=== PATIENT | female | born 1990 | race African-American/Black ===

== ENCOUNTER 2017-03-13 14:28 | Emergency (ER) | payer MEDICAID, OTHER ==
--- NOTE | 2017-03-13 16:14 | ER Document Report ---
ED Medical Screen (RME) - General Chief Complaint: Abdominal Pain Stated Complaint: BACK AND SIDE PAIN Time Seen by Provider: 03/13/17 16:12 Notes: Patient states she is currently and her last menstrual cycle was January 26. She states for several days she has had left lower quadrant pain that goes to her back. It is making her lightheaded and dizzy. No vaginal bleeding. TRAVEL OUTSIDE OF THE [place] IN LAST 30 DAYS: No - Related Data Allergies/Adverse Reactions: No Known Allergies Allergy (Verified 03/13/17 14:54) Past Medical History - Past Medical History Cardiac Medical History: Denies: Hx Coronary Artery Disease, Hx Heart Attack, Hx Hypertension Pulmonary Medical History: Reports: Hx Bronchitis - As a child, Hx Pneumonia Denies: Hx Asthma, Hx COPD Neurological Medical History: Denies: Hx Cerebrovascular Accident, Hx Seizures Renal/ Medical History: Denies: Hx Peritoneal Dialysis Musculoskeltal Medical History: Denies Hx Arthritis Past Surgical History: Reports: Hx Dilation and Curettage, Other - Pilonidal abscess - Immunizations Immunizations up to date: Yes Hx Diphtheria, Pertussis, Tetanus Vaccination: Yes - UNKNOWN Physical Exam - Vital signs Vitals: Temp Pulse Resp BP Pulse Ox 98.7 F 89 14 123/71 100 03/13/17 14:54 03/13/17 14:54 03/13/17 14:54 03/13/17 14:54 03/13/17 14:54 Course - Vital Signs Vital signs: Temp Pulse Resp BP Pulse Ox 98.7 F 89 14 123/71 100 03/13/17 14:54 03/13/17 14:54 03/13/17 14:54 03/13/17 14:54 03/13/17 14:54
[2017-03-13 17:00] LABS: ABSOLUTE EOSINOPHILS # (AUTO) 0.1 10^3/uL (0.0-0.6); ABSOLUTE LYMPHOCYTES (AUTO) 2.7 10^3/uL (0.5-4.7); ABSOLUTE MONOCYTES (AUTO) 0.6 10^3/uL (0.1-1.4); ABSOLUTE NEUT (AUTO) 3.8 10^3/uL (1.7-8.2); BASOPHILS % (AUTO) 0.3 % (0-2); EOSINOPHILS % (AUTO) 1.7 % (0-6); HEMATOCRIT 38.9 % (36.0-47.0); HEMOGLOBIN 13.5 g/dL (12.0-15.5); HGB HCT DIFFERENCE 1.6; LYMPHOCYTES % (AUTO) 37.3 % (13-45); MEAN CORPUSCULAR HEMOGLOBIN 31.6 pg (27.0-33.4); MEAN CORPUSCULAR HGB CONC 34.6 g/dL (32.0-36.0); MEAN CORPUSCULAR VOLUME 91 fl (80-97); RED BLOOD COUNT 4.26 10^6/uL (3.72-5.28); RED CELL DISTRIBUTION WIDTH 12.9 % (11.5-14.0); SEGMENTED NEUTROPHILS % (AUTO) 52.7 % (42-78); WHITE BLOOD COUNT 7.1 10^3/uL (4.0-10.5)
[2017-03-13 17:05] LABS: APPEARANCE,URINE SLIGHTLY-CLOUDY; BILIRUBIN,URINE NEGATIVE (NEGATIVE); GLUCOSE, URINE NEGATIVE (NEGATIVE); KETONES,URINE NEGATIVE (NEGATIVE); LEUKOCYTE ESTERASE,URINE SMALL (NEGATIVE); NITRITE,URINE NEGATIVE (NEGATIVE); PROTEIN,URINE NEGATIVE (NEGATIVE); URINE SPECIFIC GRAVITY 1.017; UROBILINOGEN,URINE NEGATIVE mg/dL (<2.0)
[2017-03-13 17:15] LABS: ALANINE AMINOTRANSFERASE 22 U/L (9-52); ALBUMIN 4.3 g/dL (3.5-5.0); ALKALINE PHOSPHATASE 39 U/L (38-126); ANION GAP 12 (5-19); ASPARTATE AMINO TRANSFERASE 18 U/L (14-36); BILIRUBIN,DIRECT 0.3 mg/dL (0.0-0.4); BILIRUBIN,TOTAL 0.4 mg/dL (0.2-1.3); BLOOD UREA NITROGEN 7 mg/dL (7-20); CALCIUM 9.5 mg/dL (8.4-10.2); CARBON DIOXIDE 24 mmol/L (22-30); CHLORIDE 103 mmol/L (98-107); CREATININE RESULT 0.75 mg/dL (0.52-1.25); GLUCOSE 74 mg/dL (75-110); POTASSIUM 3.8 mmol/L (3.6-5.0); SODIUM 138.7 mmol/L (137-145); TOTAL PROTEIN 6.8 g/dL (6.3-8.2)
--- NOTE | 2017-03-13 18:32 | ER Document Report ---
ED GI/ - General Mode of Arrival: Ambulatory Information source: Patient TRAVEL OUTSIDE OF THE [place] IN LAST 30 DAYS: No - HPI Patient complains to provider of: Abdominal pain, , Vomiting. No: Dysuria Onset: Other - Refer to HPI Notes Similar symptoms previously: No Recently seen / treated by doctor: No <KRYSTIAN ZAPATA - Last Filed: 03/13/17 20:38> <DIONI SHUKLA - Last Filed: 03/13/17 21:24> - General Chief Complaint: Abdominal Pain Stated Complaint: BACK AND SIDE PAIN Time Seen by Provider: 03/13/17 16:12 Notes: Patient is a 26 year old female presenting to the emergency department for left lower quadrant pain for the last 5 days. Patient states that she is A1. Patient believes she is 6 weeks but has not had an ultrasound yet and has not been seen by an OB. Patient states her pain shoots down and around into her back. Patient describes it as achy and sharp. Patient also has been lightheaded and dizzy and complains of some nausea and vomiting. Patient denies any vaginal discharge, vaginal bleeding, burning with urination, or other dysuria symptoms. Patient's last menstrual period was 01/26/2017. Patient has no known drug allergies. (KRYSTIAN ZAPATA) - Related Data Allergies/Adverse Reactions: No Known Allergies Allergy (Verified 03/13/17 14:54) Past Medical History - General Information source: Patient - Social History Smoking Status: Never Smoker Cigarette use (# per day): No Chew tobacco use (# tins/day): No Smoking Education Provided: No Frequency of alcohol use: None Drug Abuse: None Family History: None Patient has suicidal ideation: No Patient has homicidal ideation: No Pulmonary Medical History: Reports: Hx Bronchitis - As a child, Hx Pneumonia Past Surgical History: Reports: Hx Dilation and Curettage, Hx Gynecologic Surgery - DNC, Other - Pilonidal abscess - Immunizations Immunizations up to date: Yes Hx Diphtheria, Pertussis, Tetanus Vaccination: Yes - UNKNOWN <KRYSTIAN ZAPATA - Last Filed: 03/13/17 20:38> Review of Systems - Review of Systems Constitutional: No symptoms reported Cardiovascular: See HPI, Dizziness, Lightheaded Respiratory: No symptoms reported Gastrointestinal: See HPI, Abdominal pain, Nausea, Vomiting. denies: Diarrhea Genitourinary: denies: Burning, Dysuria Female Genitourinary: See HPI, Last menstrual period - 01/26/2017, . denies: Vaginal discharge, Vaginal bleeding Musculoskeletal: See HPI, Back pain Skin: No symptoms reported Neurological/Psychological: No symptoms reported <KRYSTIAN ZAPATA - Last Filed: 03/13/17 20:38> Physical Exam <AXELKRYSTIAN KAY - Last Filed: 03/13/17 20:38> <DIONI SHUKLA - Last Filed: 03/13/17 21:24> - Vital signs Vitals: Temp Pulse Resp BP Pulse Ox 98.7 F 89 14 123/71 100 03/13/17 14:54 03/13/17 14:54 03/13/17 14:54 03/13/17 14:54 03/13/17 14:54 - Notes Notes: GENERAL: Alert, interacts well. No acute distress. HEAD: Normocephalic, atraumatic. EYES: Pupils equal, round, and reactive to light. Extraocular movements intact. ENT: Oral mucosa moist, tongue midline. NECK: Full range of motion. Supple. Trachea midline. LUNGS: Clear to auscultation bilaterally, no wheezes, rales, or rhonchi. No respiratory distress. HEART: Regular rate and rhythm. No murmurs, gallops, or rubs. ABDOMEN: Soft, left lower quadrant tenderness with palpation and mild suprapubic tenderness with palpation. No masses. Non-distended. Bowel sounds present in all 4 quadrants. EXTREMITIES: Moves all 4 extremities spontaneously. No edema. No cyanosis. NEUROLOGICAL: Alert and oriented x3. Normal speech. PSYCH: Normal affect, normal mood. SKIN: Warm, dry, normal turgor. No rashes or lesions noted. (KRYSTIAN ZAPATA) Course - Laboratory Result Diagrams: 03/13/17 16:45 03/13/17 16:45 <BENNYANDREAKRYSTIAN - Last Filed: 03/13/17 20:38> - Laboratory Result Diagrams: 03/13/17 16:45 03/13/17 16:45 <DIONI SHUKLA - Last Filed: 03/13/17 21:24> - Re-evaluation Re-evalutation: 03/13/17 20:40 CBC unremarkable, CMP grossly unremarkable, quantitative beta-hCG is 16,715, urinalysis shows small leukocyte esterase with 7 WBCs. Given the fact that she is and symptomatic patient will be prescribed Macrobid. OB ultrasound shows 6 week intrauterine , heart rate is 89 bpm. Right and left adnexa appear normal, there is a small hypoechoic area in the left adnexa most consistent with a corpus luteum cyst. (DIONI SHUKLA) - Vital Signs Vital signs: Temp Pulse Resp BP Pulse Ox 98.5 F 88 18 131/74 H 100 03/13/17 19:35 03/13/17 19:35 03/13/17 19:35 03/13/17 19:35 03/13/17 19:35 - Laboratory Laboratory results interpreted by me: 03/13/17 03/13/17 16:45 16:45 Glucose 74 L Beta HCG, Quant 26610.00 H Ur Leukocyte Esterase SMALL H Discharge <KRYSTIAN ZAPATA - Last Filed: 03/13/17 20:38> <DIONI SHUKLA - Last Filed: 03/13/17 21:24> - Discharge Clinical Impression: First trimester , Urinary tract infection affecting care of mother in first trimester, antepartum, Pre-hypertension Left lower quadrant abdominal tenderness Qualifiers: Presence of rebound: absent Qualified Code(s): R10.814 - Left lower quadrant abdominal tenderness Condition: Stable Disposition: HOME, SELF-CARE Additional Instructions: Please take Macrobid as directed until it is gone. This will treat urinary tract infection. Today your appears to be approximately 6 weeks along. The heart rate was 89 bpm. There is no sign of bleeding, there is no sign of ectopic or tubal . You appear to have a corpus luteum cyst on your right ovary. This is the cyst that sustains the for the first few weeks. Please follow-up as an outpatient with the [facility] of your choice. Prescriptions: Nitrofurantoin/Nitrofuran Mac [Macrobid 100 mg Capsule] 1 tab PO BID #10 capsule Promethazine HCl [Phenergan 25 mg Tablet] 1 tab PO Q6H PRN #15 tablet PRN Reason: Forms: Elevated Blood Pressure Referrals: [facility] [Provider Group] - Follow up as needed Scribe Attestation: 03/13/17 21:23 I personally performed the services described in the documentation, reviewed and edited the documentation which was dictated to the scribe in my presence, and it accurately records my words and actions. (DIONI SHUKLA) Scribe Documentation - Scribe Written by Eladia:: Eladia Ramirez 03/13/2017 20:35 acting as scribe for :: Cam <KRYSTIAN ZAPATA - Last Filed: 03/13/17 20:38>
--- NOTE | 2017-03-13 20:30 | RADIOLOGY REPORT (SQ) ---
EXAM DESCRIPTION: U/S OB TRANSVAGINAL W/O DOP COMPLETED DATE/TIME: 03/13/2017 8:12 pm REASON FOR STUDY: preg/pain COMPARISON: None. TECHNIQUE: Transvaginal static and realtime grayscale images acquired of the pelvis. Additional jesse cted spectral and color Doppler images recorded. All images stored on PACs. C01,530 LIMITATIONS: None. FINDINGS: FETUS: Living intrauterine . EGA: 6 weeks PAKO: 11/07/2007 FHR: 89 beats per minute. SUBCHORIONIC BLEED: No SIZE OF BLEED: Not applicable. UTERUS: No masses. No anomalies. CERVICAL LENGTH: 3.2 sign Closed. RIGHT ADNEXA: Normal ovary with normal vascular flow. A small hypoechoic area is identified measuring 1.6 x 2.1 x 2.3 cm in diameters most consistent with a corpus lutein cyst LEFT ADNEXA: Normal ovary with normal vascular flow. No adnexal free fluid. No adnexal masses. FREE FLUID: None. OTHER: No other significant finding. IMPRESSION: LIVING INTRAUTERINE . EGA 6 weeks Trimester of : First - 0 to 13 weeks. TECHNICAL DOCUMENTATION: JOB ID: [id number] [employer]- All Rights Reserved
[2017-03-13] MEDS ORDERED: NITROFURANTOIN MONOHYD/M-CRYST 100 MG CAPSULE PO ONE (20:38)
[2017-03-13] MEDS ORDERED: METOCLOPRAMIDE HCL 10 MG TABLET PO ONE (20:38)
[2017-03-13 22:00] VITALS: BP 128/78
== END 2017-03-13 21:10 | disposition home or self-care (01) ==
LOC: ER 14:28
DX: O23.41 Unspecified infection of urinary tract in pregnancy, first trimester (principal); O21.9 Vomiting of pregnancy, unspecified; R10.814 Left lower quadrant abdominal tenderness; R03.0 Elevated blood-pressure reading, without diagnosis of hypertension; R42 Dizziness and giddiness; Z3A.01 Less than 8 weeks gestation of pregnancy
CPT/HCPCS: 99284; 36415; 84702; 85025; 80053; 81001; 76817; J8499

== ENCOUNTER 2017-10-18 01:33 | Outpatient (CLI) | payer MEDICAID ==
[2017-10-18 02:09] LABS: APPEARANCE,URINE SLIGHTLY-CLOUDY; BILIRUBIN,URINE NEGATIVE (NEGATIVE); COLOR,URINE STRAW; GLUCOSE, URINE NEGATIVE (NEGATIVE); KETONES,URINE NEGATIVE (NEGATIVE); LEUKOCYTE ESTERASE,URINE SMALL (NEGATIVE); NITRITE,URINE NEGATIVE (NEGATIVE); PROTEIN,URINE NEGATIVE (NEGATIVE); URINE SPECIFIC GRAVITY 1.006; UROBILINOGEN,URINE NEGATIVE mg/dL (<2.0)
[2017-10-18 02:10] LABS: AMNISURE (ROM) NEGATIVE (NEGATIVE)
[2017-10-18 02:54] LABS: URINE AMPHETAMINES SCREEN NEGATIVE; URINE BARBITURATES SCREEN NEGATIVE; URINE BENZODIAZEPINES SCREEN NEGATIVE; URINE COCAINE SCREEN NEGATIVE; URINE MARIJUANA (THC) SCREEN NEGATIVE; URINE METHADONE SCREEN NEGATIVE; URINE PHENCYCLIDINE SCREEN NEGATIVE
[2017-10-18] MEDS ORDERED: HYDROXYZINE PAMOATE 50 MG CAPSULE PO ONE (03:18)
[2017-10-18] MEDS ORDERED: HYDROXYZINE PAMOATE 50 MG CAPSULE ONE (03:18)
--- NOTE | 2017-10-18 03:26 | Non Stress Test Report ---
Non Stress Test Datetime Report Generated by CPN: 10/18/2017 03:25 DEMOGRAPHIC Test Number: 1 EGA NST: 37.5 INDICATION Indication for Study: Ordered by Provider URINE RESULTS Urine Protein, NST: Negative Urine Ketones - NST: Negative Urine Glucose - NST: Negative Urine Blood - NST: Negative MONITORING Monitor Explained: Monitor Explained; Test Explained; Patient Verbalized Understanding Time on Monitor: 10/18/2017 01:54 Time off Monitor: 10/18/2017 03:21 NST Duration: 87 NST INTERVENTIONS NST Interventions: PO Hydration; Reposition Patient Physician Notified NST: Dr. Cunha BABY A: [id number] BABY A Movement : Present Contraction Frequency : 3-9 FHR Baseline : 125 Accelerations : 15X15 Variability : Moderate 6-25bpm NST Review: Meets Criteria for Reactive NST NST Review and Verified By : NDoyle RN NST Results: Reactive NST REPORT Report Trigger: Send Report
== END 2017-10-18 03:31 | disposition home or self-care (01) ==
LOC: LC 01:33
PROVIDERS: ATTEND Obstetrics & Gynecology
DX: O47.1 False labor at or after 37 completed weeks of gestation (principal); Z3A.37 37 weeks gestation of pregnancy
CPT/HCPCS: 59025; 84112; 81005; 80307; J3490

== ENCOUNTER 2017-10-27 22:08 | Outpatient (CLI) | payer MEDICAID ==
[2017-10-27 22:30] LABS: APPEARANCE,URINE SLIGHTLY-CLOUDY; BILIRUBIN,URINE NEGATIVE (NEGATIVE); COLOR,URINE YELLOW; GLUCOSE, URINE NEGATIVE (NEGATIVE); KETONES,URINE NEGATIVE (NEGATIVE); LEUKOCYTE ESTERASE,URINE MODERATE (NEGATIVE); NITRITE,URINE NEGATIVE (NEGATIVE); PROTEIN,URINE NEGATIVE (NEGATIVE); URINE SPECIFIC GRAVITY 1.026
[2017-10-27 22:52] LABS: URINE AMPHETAMINES SCREEN NEGATIVE; URINE BARBITURATES SCREEN NEGATIVE; URINE BENZODIAZEPINES SCREEN NEGATIVE; URINE COCAINE SCREEN NEGATIVE; URINE MARIJUANA (THC) SCREEN NEGATIVE; URINE METHADONE SCREEN NEGATIVE; URINE PHENCYCLIDINE SCREEN NEGATIVE
[2017-10-27] MEDS ORDERED: HYDROXYZINE PAMOATE 50 MG CAPSULE ONE (23:33)
--- NOTE | 2017-10-27 23:52 | Non Stress Test Report ---
Non Stress Test Datetime Report Generated by CPN: 10/27/2017 23:52 DEMOGRAPHIC EGA NST: 39.0 INDICATION Indication for Study: Ordered by Provider MONITORING Monitor Explained: Monitor Explained; Test Explained; Patient Verbalized Understanding Time on Monitor: 10/27/2017 22:25 Time off Monitor: 10/27/2017 23:36 NST Duration: 71 NST INTERVENTIONS NST Interventions: PO Hydration Physician Notified NST: Kwon Greg BABY A: [id number] BABY A Movement : Present Contraction Frequency : irregular FHR Baseline : 140 Accelerations : 15X15 Decelerations : None Variability : Moderate 6-25bpm NST Review: Meets Criteria for Reactive NST NST Review and Verified By : TYRESE Judge Results: Reactive NST REPORT Report Trigger: Send Report
== END 2017-10-27 23:44 | disposition home or self-care (01) ==
LOC: LC 22:08
PROVIDERS: ATTEND Obstetrics & Gynecology
PROC: 4A1HXCZ Monitoring of Products of Conception, Cardiac Rate, External Approach (ICD-10-PCS; principal; 2017-10-27)
DX: O47.1 False labor at or after 37 completed weeks of gestation (principal); Z3A.39 39 weeks gestation of pregnancy
CPT/HCPCS: 59025; 81005; 80307; Q0114; J3490

== ENCOUNTER 2017-10-28 01:58 | Inpatient (IN) | payer MEDICAID ==
[2017-10-28] MEDS ORDERED: MISOPROSTOL 0.2 MG TABLET ONE (02:38)
[2017-10-28] MEDS ORDERED: OXYTOCIN/NORMAL SALINE 20 UNIT/1,000 ML RTUINJ ONE (02:38)
[2017-10-28] MEDS ORDERED: LIDOCAINE 1% INJ-PF (10 MG/ML) 30 ML SDV ONE (02:38)
[2017-10-28 02:58] LABS: ABSOLUTE EOSINOPHILS # (AUTO) 0.1 10^3/uL (0.0-0.6); ABSOLUTE LYMPHOCYTES (AUTO) 1.6 10^3/uL (0.5-4.7); ABSOLUTE MONOCYTES (AUTO) 0.6 10^3/uL (0.1-1.4); ABSOLUTE NEUT (AUTO) 7.8 10^3/uL (1.7-8.2); BASOPHILS % (AUTO) 0.3 % (0-2); EOSINOPHILS % (AUTO) 0.8 % (0-6); HEMATOCRIT 38.2 % (36.0-47.0); HEMOGLOBIN 13.2 g/dL (12.0-15.5); LYMPHOCYTES % (AUTO) 16.2 % (13-45); MEAN CORPUSCULAR HEMOGLOBIN 31.3 pg (27.0-33.4); MEAN CORPUSCULAR HGB CONC 34.5 g/dL (32.0-36.0); MEAN CORPUSCULAR VOLUME 91 fl (80-97); MONOCYTES % (AUTO) 5.6 % (3-13); PLATELET COUNT 123 10^3/uL (150-450); RED CELL DISTRIBUTION WIDTH 12.9 % (11.5-14.0); SEGMENTED NEUTROPHILS % (AUTO) 77.1 % (42-78); TOTAL CELLS COUNTED % (AUTO) 100 %; WHITE BLOOD COUNT 10.2 10^3/uL (4.0-10.5)
[2017-10-28] MEDS ORDERED: BUPIVACAINE HCL 0.25 % INJ/PF (2.5 MG/1 ML) 30 ML VIAL ONE (03:06)
[2017-10-28] MEDS ORDERED: PHENYLEPHRINE HCL INJ/PF 10 MG/1 ML SDV ONE (03:06)
[2017-10-28] MEDS ORDERED: FENTANYL CITRATE INJ/PF 100 MCG/2 ML AMPUL ONE (03:06)
[2017-10-28] MEDS ORDERED: EPHEDRINE SULFATE INJ 50 MG/1 ML AMPULE ONE (03:06)
[2017-10-28] MEDS ORDERED: FENTANYL/BUPIVACAINE/NS/PF 200 MCG/100 ML RTUINJ EPI ONE (03:19)
--- NOTE | 2017-10-28 04:41 | Admission Physical ---
Datetime Report Generated by CPN: 10/28/2017 04:41 CURRENT ADMISSION Chief Complaint: Uterine Contractions Indication for Induction: Not Applicable Admit Impression : Term, Intrauterine ; Active Labor; Intact Membranes Admit Plan: Admit to Unit; Initiate Labor Protocol ALLERGIES Medication Allergies: No Medication Allergies: No Known Allergies (10/18/2017) Latex: No Latex Allergies OBSTETRICAL HISTORY EDC: 11/03/2017 00:00 : 2 Para: 1 Term: 1 : 0 SAB: 0 IAB: 0 Ectopic: 0 Livin Cesareans: 0 VBACs: 0 Multiple Births: 0 Gestational Diabetes: No Rh Sensitization: No Incompetent Cervix: No KRYSTLE: No Infertility: No ART Treatment: No Uterine Anomaly: No IUGR: No Hx Previous C/S: No Macrosomia: No Hx Loss/Stillborn: No PIH: No Hx : No Placenta Previa/Abruption: No Depression/PP Depression: No PTL/PROM: No Post Hemorrhage: No Current Procedures: Ultrasound; NST Obstetrical History Comments: Female 39.6 wks 6lbs 1oz G2-Current SEE RECORDS Alcohol: No Marijuana : No Cocaine: No Other Illicit Drugs: No Cigarettes: Former Smoker. 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 Surgery: No Heart Disease: No Hosp/Surgery: Yes Autoimmune Disorder: No Anesthetic Complications: No Kidney Disease: No Abnormal Pap Smear: No Neuro/Epilepsy: No Psychiatric Disorders: No Other Medical Diseases: No Hepatitis/Liver Disease: No Significant Family History: No Varicosities/Phlebitis: No Trauma/Violence : No Thyroid Dysfunction: No Medical History Comments: Childbirth; INFECTIOUS HISTORY Gonorrhea: No Genital Herpes: No Chlamydia: No Tuberculosis: No Syphilis: No Hepatitis: No HIV/AIDS Exposure: No Rash or Viral Illness: No HPV: No PHYSICAL EXAM General: Normal HEENT: Normal Neurologic: Normal Heart: Normal Lungs: Normal Abdomen: Normal Genitourinary Exam: Normal Extremities: Normal Pelvic Type: Adequate Vital Signs: Reviewed; Within Normal Limits VAGINAL EXAM Dilatation: 5 Effacement: 75 Station: -1 Contraction Comments: q 3-4 min MEMBRANES Membranes: Intact FETUS A EGA: 39.1 Monitoring: External US FHR- Baseline: 135 Variability: Moderate 6-25bpm Accelerations: 15X15 Decelerations: None FHR Category: Category I Presentation: Vertex PLANS FOR LABOR AND DELIVERY Labor and Delivery: None Pain Management: Medications; Epidural Feeding Preference: Breast Benefit of Breast Feed Discussed: Yes Circumcision: Yes INFORMED CONSENT Signature: with User ID: [email or web address]
[2017-10-28] MEDS ORDERED: DIBUCAINE 1% OINTMENT 28 GM TP PRN (08:02)
[2017-10-28] MEDS ORDERED: MEASLES,MUMPS&RUBELLA VACC/PF 0.5 ML VIAL SUBCUT PRN (08:02)
[2017-10-28] MEDS ORDERED: OXYTOCIN/NORMAL SALINE 20 UNIT/1,000 ML RTUINJ IV PRN (08:02)
[2017-10-28] MEDS ORDERED: DIPH/PERTUSS(ACELL)/TETANUS VAC/PF 0.5 ML SYR (>=10YO) IM PRN (08:02)
[2017-10-28] MEDS ORDERED: BENZOCAINE/MENTHOL AEROSOL SPRAY 56 ML TOP PRN (08:02)
--- NOTE | 2017-10-28 10:11 | Delivery Summary ---
Del Sum A-C Datetime Report Generated by CPN: 10/28/2017 10:10 DELIVERY PERSONNEL DELIVERY PERSONNEL: [id number] Delivery Doctor:: Vishal Barron MD Labor and Delivery Nurse:: Krys Duvall RNflooring machine operator Nurse:: Rachel Millard RN Industrial Conveyor Belt Repairer/MOTION PICTURE EQUIPMENT SUPERVISOR: Andres Jose, GEOPHYSICAL PROSPECTOR MATERNAL INFORMATION Delivery Anesthesia: Epidural Medications After Delivery: Pitocin Bolus-Please Comment Meds After Delivery Comment: Pitocin 20 units in 1000mL NS Estimated Blood Loss (ml): 200 Maternal Complications: None Provider Comments: PT C_P. Head delivered OA. Anterior _ posterior shoulder delivered followed by rest of body, Baby placed on mom's abdomen. After 1min, cord clamped x 2 and cut. Placenta delivered intact. Fundus firm. Abrasions repaired as above. LABOR SUMMARY EDC: 11/03/2017 00:00 No. Babies in Womb: 1 Labor Anesthesia: Epidural LABOR INFORMATION Reason for Induction: Not Applicable Onset of Labor: 10/28/2017 02:12 Complete Dilatation: 10/28/2017 07:29 Oxytocin: N/A Group B Beta Strep: Negative Antibiotics # of Doses: 0 Antibiotics Time of Last Dose: n/a Name of Antibiotic Given: n/a Steroids Given: None Reason Steroids Not Administered: Not Applicable Other Reason Not Administered: n/a MEMBRANES Membranes Rupture Method: Spontaneous Rupture of Membranes: 10/28/2017 04:50 Length of Rupture (hr): 2.80 Amniotic Fluid Color: Bloody Amniotic Fluid Amount: Small Amniotic Fluid Odor: Normal STAGES OF LABOR Stage 1 hr: 5 Stage 1 min: 17 Stage 2 hr: 0 Stage 2 min: 9 Stage 3 hr: 0 Stage 3 min: 5 Total Time in Labor hr: 5 Total Time in Labor min: 31 VAGINAL DELIVERY Episiotomy: None Laceration #1: Perineal Laceration Extension #1: N/A Other Laceration: L labial (Annotations: Data stored by [facility] on behalf of user) Laceration Repair: Yes Laceration Repair Note: Vaginal _ L labial abrasions reapproximated with 3.0 Vicryl Sponge Count Correct: N/A Sharps Count Correct: N/A CSECTION DELIVERY Primary Indication: N/A Secondary Indication: N/A CSection Incidence: N/A Labor: N/A Elective: N/A CSection Incision: N/A BABY A INFORMATION Infant Delivery Date/Time: 10/28/2017 07:38 Method of Delivery: Vaginal Born in Route : No : N/A Forceps: N/A Vacuum Extraction: N/A Shoulder Dystocia : No PRESENTATION/POSITION BABY A Presentation: Cephalic Cephalic Presentation: Vertex Vertex Position: Left Occipital Anterior Breech Presentation: N/A PLACENTA INFORMATION BABY A Placenta Delivery Time : 10/28/2017 07:43 Placenta Method of Delivery: Spontaneous Placenta Status: Delivered SCORES BABY A Heart Rate 1 min: >100 bpm Resp Effort 1 min: Good Cry Reflex Irritability 1 min: Cough or Sneeze or Pulls Away Muscle Tone 1 min: Active Motion Color 1 min: Blue/Pale Resuscitation Effort 1 min: Tactile Stimulation SCORE 1 MIN: 8 Heart Rate 5 min: >100 bpm Resp Effort 5 min: Good Cry Reflex Irritability 5 min: Cough or Sneeze or Pulls Away Muscle Tone 5 min: Active Motion Color 5 min: Body Olin, Extremities Blue Resuscitation Effort 5 min: Tactile Stimulation SCORE 5 MIN: 9 INFORMATION BABY A Gestational Age at Delivery: 39.1 Gestational Status: Full Term- 39- 40.6 Weeks Outcome : Liveborn Infant Condition : Stable Sex: Male IDENTIFICATION BABY A Verification Date/Time: 10/28/2017 08:07 ID Band Number: [id number] Mother's Name Verified: Yes RN Verifying Infant: H. Freeman, RN and A. Natanael, RN WEIGHT/LENGTH BABY A Birthweight (gm): 2810 Weight (lb): 6 Weight (oz): 3 Infant Length (in): 20.75 Length (cm): 52.71 CORD INFORMATION BABY A No. Cord Vessels: 3 Nuchal Cord : N/A Cord Blood Taken: No-Annotate Suction: None ASSESSMENT BABY A Skin to Skin: Yes Skin to Skin Time (min): 80 BABY B INFORMATION : N/A SIGNATURES Signature: with User ID: [email or web address]
[2017-10-28] MEDS: RINGERS SOLUTION,LACTATED 1,000 ML IV PRN ×4 (10:13→10:43)
[2017-10-28] MEDS: SENNOSIDES/DOCUSATE 8.6-50 MG 1 EACH TABLET PO SCH (11:55)
[2017-10-28] MEDS: DOCUSATE SODIUM 100 MG CAPSULE PO SCH ×2 (11:56→17:33)
[2017-10-28] MEDS: FERROUS SULFATE 325 MG TABLET PO SCH ×2 (11:57→17:33)
[2017-10-28] MEDS: PRENATAL VITAMIN W DHA CAPSULE PO SCH (11:57)
[2017-10-28] MEDS: HYDROCODONE/ACETAMINOPHEN 5-325 MG TABLET PO PRN ×2 (12:32→17:33)
[2017-10-28] MEDS: IBUPROFEN 800 MG TABLET PO SCH ×2 (13:05→21:13)
[2017-10-28] MEDS ORDERED: ZOLPIDEM TARTRATE 5 MG TABLET PO PRN (22:00)
[2017-10-29] MEDS: HYDROCODONE/ACETAMINOPHEN 5-325 MG TABLET PO PRN ×2 (02:15→17:08)
[2017-10-29] MEDS: IBUPROFEN 800 MG TABLET PO SCH ×3 (07:33→21:07)
[2017-10-29 07:47] LABS: HEMATOCRIT 34.8 % (36.0-47.0); HEMOGLOBIN 11.9 g/dL (12.0-15.5); MEAN CORPUSCULAR HEMOGLOBIN 31.1 pg (27.0-33.4); MEAN CORPUSCULAR VOLUME 91 fl (80-97); PLATELET COUNT 102 10^3/uL (150-450); RED BLOOD COUNT 3.81 10^6/uL (3.72-5.28); RED CELL DISTRIBUTION WIDTH 13.2 % (11.5-14.0); WHITE BLOOD COUNT 11.7 10^3/uL (4.0-10.5)
[2017-10-29] MEDS: DOCUSATE SODIUM 100 MG CAPSULE PO SCH ×2 (09:19→17:03)
[2017-10-29] MEDS: FERROUS SULFATE 325 MG TABLET PO SCH ×2 (09:19→17:03)
[2017-10-29] MEDS: PRENATAL VITAMIN W DHA CAPSULE PO SCH (09:19)
[2017-10-29] MEDS: SENNOSIDES/DOCUSATE 8.6-50 MG 1 EACH TABLET PO SCH (09:19)
--- NOTE | 2017-10-29 12:27 | PDOC PROGRESS REPORT ---
Subjective-OB Progress Note for:: 10/29/17 Subjective: s/p Day #1 Doing well, denies concerns, states lochia is stable, pain well controlled, voiding without difficulty. Physical Exam (OB) Vital Signs: Temp Pulse Resp BP Pulse Ox 98.2 F 87 18 117/72 96 10/29/17 07:56 10/29/17 07:56 10/29/17 07:56 10/29/17 07:56 10/29/17 07:56 Intake & Output 10/28/17 10/29/17 10/30/17 06:59 06:59 06:59 Output Total 700 Balance -700 - PIH/Pre-Eclampsia Clonus: Negative Headache: Absent Epigastric Pain: No - Lochia Lochia Amount: Small 10-25 ml Lochia Color: Rubra/Red - Abdomen Description: Soft, Round Hernia Present: No Fundal Description: Firm, Midline Fundal Height: u/u - u/2 Objective-Diagnostic Laboratory: 10/29/17 07:31 10/29/17 07:31 WBC 11.7 H RBC 3.81 Hgb 11.9 L Hct 34.8 L MCV 91 MCH 31.1 MCHC 34.0 RDW 13.2 Plt Count 102 L Assessment and Plan(PN) - Assessment and Plan (1) Vaginal delivery Is this a current diagnosis for this admission?: Yes Plan: routine pp care - Time Spent with Patient Time with patient: Less than 15 minutes Critical Time spent with patient: Less than 15 minutes Medications reviewed and adjusted accordingly: Yes - Disposition Anticipated Discharge: Home Within: within 24 hours
[2017-10-30] MEDS: IBUPROFEN 800 MG TABLET PO SCH ×2 (05:23→13:33)
[2017-10-30 08:41] VITALS: BP 117/71
--- NOTE | 2017-10-30 09:18 | PDOC PROGRESS REPORT ---
Subjective-OB Progress Note for:: 10/30/17 Subjective: Doing well, ready to go home, scant bleeding, breast feeding, Physical Exam (OB) Vital Signs: Temp Pulse Resp BP Pulse Ox 97.9 F 72 15 117/71 100 10/30/17 08:13 10/30/17 08:13 10/30/17 08:13 10/30/17 08:13 10/30/17 08:13 Intake & Output 10/29/17 10/30/17 10/31/17 06:59 06:59 06:59 Output Total 700 Balance -700 - PIH/Pre-Eclampsia DTR's: 2 + Clonus: Negative Headache: Absent Epigastric Pain: No Visual Changes: No - Lochia Lochia Amount: Scant < 10 ml Lochia Color: Rubra/Red - Abdomen Description: Soft Hernia Present: No Fundal Description: Firm, Midline Fundal Height: u/u - u/2 Objective-Diagnostic Laboratory: 10/29/17 07:31 Assessment and Plan(PN) - Assessment and Plan (1) Vaginal delivery Is this a current diagnosis for this admission?: Yes - Time Spent with Patient Time with patient: Less than 15 minutes Medications reviewed and adjusted accordingly: Yes - Disposition Anticipated Discharge: Home Within: Other - home today after CBC and 4 pm bili for baby
--- NOTE | 2017-10-30 09:21 | PDOC DISCHARGE SUMMARY ---
Final Diagnosis Discharge Date: 10/30/17 - Final Diagnosis (1) Vaginal delivery Is this a current diagnosis for this admission?: Yes Discharge Data - Discharge Medication Home Medications: Vit/Iron Fum/Folic AC [ Tablet] 1 each PO DAILY 10/18/17 Gestational Age: 39.1 Reason(s) for Admission: Onset of Labor Procedures: NST, Ultrasound Intrapartum Procedure(s): Spontaneous Vaginal Delivery Complication(s): Laceration-Perineal, Laceration-Labial Laceration-Degree: 1st - Data Baby 1 Male at 1 minute: 8 at 5 minutes: 9 Weight: 2.807 kg Home with Mother: Yes Complications: No - Diagnosis Test Laboratory: Temp Pulse Resp BP Pulse Ox 97.9 F 72 15 117/71 100 10/30/17 08:13 10/30/17 08:13 10/30/17 08:13 10/30/17 08:13 10/30/17 08:13 10/28/17 10/29/17 02:38 07:31 RBC 4.20 3.81 Hgb 13.2 11.9 L Hct 38.2 34.8 L - Discharge information/Instructions Discharge Activity: Activity As Tolerated, No Lifting Over 10 Pounds, Pelvic Rest Discharge Diet: As Tolerated, Regular Disposition: HOME, SELF-CARE Follow up with: [facility] in: 4, Weeks
[2017-10-30] MEDS: DOCUSATE SODIUM 100 MG CAPSULE PO SCH (10:03)
[2017-10-30] MEDS: FERROUS SULFATE 325 MG TABLET PO SCH (10:03)
[2017-10-30] MEDS: SENNOSIDES/DOCUSATE 8.6-50 MG 1 EACH TABLET PO SCH (10:03)
[2017-10-30] MEDS: PRENATAL VITAMIN W DHA CAPSULE PO SCH (10:03)
[2017-10-30 10:15] LABS: HEMATOCRIT 34.5 % (36.0-47.0); HEMOGLOBIN 11.7 g/dL (12.0-15.5); MEAN CORPUSCULAR HEMOGLOBIN 31.2 pg (27.0-33.4); MEAN CORPUSCULAR HGB CONC 33.8 g/dL (32.0-36.0); MEAN CORPUSCULAR VOLUME 92 fl (80-97); PLATELET COUNT 112 10^3/uL (150-450); RED BLOOD COUNT 3.74 10^6/uL (3.72-5.28); RED CELL DISTRIBUTION WIDTH 13.4 % (11.5-14.0); WHITE BLOOD COUNT 12.2 10^3/uL (4.0-10.5)
== END 2017-10-30 18:00 | disposition home or self-care (01) | DRG 775 ==
LOC: LC 01:58 → LR 02:24 → 2S 09:36
PROVIDERS: ADMIT Obstetrics & Gynecology; ATTEND Obstetrics & Gynecology
PROC: 10E0XZZ Delivery of Products of Conception, External Approach (ICD-10-PCS; principal; 2017-10-28)
PROC: 0HQ9XZZ Repair Perineum Skin, External Approach (ICD-10-PCS; 2017-10-28)
PROC: 0UQMXZZ Repair Vulva, External Approach (ICD-10-PCS; 2017-10-28)
PROC: 4A1HXCZ Monitoring of Products of Conception, Cardiac Rate, External Approach (ICD-10-PCS; 2017-10-28)
DX: O70.0 First degree perineal laceration during delivery (principal); Z87.891 Personal history of nicotine dependence; Z3A.39 39 weeks gestation of pregnancy; Z37.0 Single live birth
CPT/HCPCS: 36415; 85025; 85027; 86592; 86850; 86900; 86901; 94760; J2370; J2590; J3010; J3490

== ENCOUNTER → 2018-03-23 | Outpatient (CLI) | payer MEDICAID ==
[2018-03-23 12:27] LABS: RBCS (WET MOUNT) FEW RBCS SEEN; T.VAGINALIS (WET MOUNT) TRICHOMONAS SEEN; WBCS (WET MOUNT) 1+ WBCS SEEN; YEAST (WET MOUNT) NO YEAST SEEN
[2018-03-23 14:03] LABS: CHLAM PCR NOT DETECTED (NOT DETECT); GON PCR NOT DETECTED (NOT DETECT)
== END ==
LOC: LAB 12:17
PROVIDERS: ATTEND Nurse Practitioner Family
DX: N89.8 Other specified noninflammatory disorders of vagina (principal); R30.0 Dysuria
CPT/HCPCS: 87086; 87210; 87491; 87591

== ENCOUNTER → 2018-09-06 | Outpatient (CLI) | payer SELFPAY ==
[2018-09-06 13:17] LABS: BACTERIA (WET MOUNT) 3+ BACTERIA SEEN; EPITHELIALS (WET MOUNT) 3+ EPITHELIALS SEEN; RBCS (WET MOUNT) 1+ RBCS SEEN; T.VAGINALIS (WET MOUNT) TRICHOMONAS SEEN; WBCS (WET MOUNT) 3+ WBCS SEEN; YEAST (WET MOUNT) NO YEAST SEEN
[2018-09-06 14:48] LABS: CHLAM PCR NOT DETECTED (NOT DETECT); GON PCR NOT DETECTED (NOT DETECT)
== END ==
LOC: LAB 13:10
PROVIDERS: ATTEND Nurse Practitioner Family
DX: Z00.00 Encounter for general adult medical examination without abnormal findings (principal)
CPT/HCPCS: 87086; 87210; 87491; 87591

== ENCOUNTER → 2018-11-11 | Outpatient (CLI) | payer MEDICAID ==
[2018-11-11 14:31] LABS: T.VAGINALIS (WET MOUNT) TRICHOMONAS SEEN; WBCS (WET MOUNT) 3+ WBCS SEEN; YEAST (WET MOUNT) NO YEAST SEEN
[2018-11-11 14:32] LABS: BACTERIA (WET MOUNT) 4+ BACTERIA SEEN; EPITHELIALS (WET MOUNT) 4+ EPITHELIALS SEEN; RBCS (WET MOUNT) 1+ RBCS SEEN
[2018-11-11 16:03] LABS: CHLAM PCR NOT DETECTED (NOT DETECT); GON PCR NOT DETECTED (NOT DETECT)
== END ==
LOC: LAB 14:28
PROVIDERS: ATTEND Nurse Practitioner Acute Care
DX: N89.8 Other specified noninflammatory disorders of vagina (principal); R30.0 Dysuria
CPT/HCPCS: 87086; 87210; 87491; 87591

== ENCOUNTER → 2018-12-15 | Outpatient (CLI) | payer MEDICAID ==
[2018-12-15 10:56] LABS: BACTERIA (WET MOUNT) 3+ BACTERIA SEEN; EPITHELIALS (WET MOUNT) 3+ EPITHELIALS SEEN; RBCS (WET MOUNT) 1+ RBCS SEEN; T.VAGINALIS (WET MOUNT) TRICHOMONAS SEEN; WBCS (WET MOUNT) 1+ WBCS SEEN; YEAST (WET MOUNT) NO YEAST SEEN
[2018-12-15 12:26] LABS: CHLAM PCR NOT DETECTED (NOT DETECT)
== END ==
LOC: LAB 10:48
PROVIDERS: ATTEND Nurse Practitioner Family
DX: N76.0 Acute vaginitis (principal); R30.0 Dysuria
CPT/HCPCS: 87086; 87088; 87186; 87210; 87491; 87591

== ENCOUNTER → 2019-01-15 | Outpatient (CLI) | payer MEDICAID ==
[2019-01-15 15:17] LABS: T.VAGINALIS (WET MOUNT) NO TRICHOMONAS SEEN; YEAST (WET MOUNT) NO YEAST SEEN
[2019-01-15 15:18] LABS: BACTERIA (WET MOUNT) 4+ BACTERIA SEEN; EPITHELIALS (WET MOUNT) 3+ EPITHELIALS SEEN; RBCS (WET MOUNT) 4+ RBCS SEEN; WBCS (WET MOUNT) 1+ WBCS SEEN
== END ==
LOC: LAB 14:58
PROVIDERS: ATTEND Nurse Practitioner Acute Care
DX: N89.8 Other specified noninflammatory disorders of vagina (principal); R10.84 Generalized abdominal pain
CPT/HCPCS: 87086; 87210

== ENCOUNTER 2020-02-11 12:04 | Emergency (ER) | payer MEDICAID ==
[2020-02-11] MEDS ORDERED: ACETAMINOPHEN 325 MG TABLET PO ONE (12:32)
--- NOTE | 2020-02-11 12:33 | ER Document Report ---
ED Medical Screen (RME) - General Stated Complaint: ABDOMINAL PAIN Time Seen by Provider: 02/11/20 12:28 Primary Care Provider: ROSALVA RIVERS NP [Primary Care Provider] - Follow up as needed Mode of Arrival: Ambulatory Information source: Patient Notes: HPI; 29-year-old female presents emergency room complaining of persistent left lower pelvic pain x6 months after having an IUD placed about a year ago. Denies any nausea, vomiting. Some dysuria. Was seen by OB told it was normal. Went to urgent care this morning. Referred to ER for possible ovarian cyst. Takes ibuprofen with some relief. No medications today. PE: Alert and oriented x3. Mild distress noted. Lungs: Clear to auscultation without rales, rhonchi, wheezes. Heart: Regular rate rhythm without murmurs, rubs, gallops. No CVA tenderness noted bilaterally. I have greeted and performed a rapid initial assessment of this patient. A comprehensive ED assessment and evaluation of the patient, analysis of test re sults and completion of the medical decision making process will be conducted by additional ED providers. I have specifically instructed the patient or family members with the patient to immediately return to any nursing staff should anything change in the patient's condition or with their chief complaint. TRAVEL OUTSIDE OF THE [place] IN LAST 30 DAYS: No - Related Data Allergies/Adverse Reactions: No Known Allergies Allergy (Verified 02/11/20 12:26) Past Medical History - Past Medical History Cardiac Medical History: Denies: Hx Coronary Artery Disease, Hx Heart Attack, Hx Hypertension Pulmonary Medical History: Reports: Hx Bronchitis - As a child, Hx Pneumonia Denies: Hx Asthma, Hx COPD Neurological Medical History: Denies: Hx Cerebrovascular Accident, Hx Seizures Renal/ Medical History: Denies: Hx Peritoneal Dialysis Musculoskeltal Medical History: Denies Hx Arthritis Past Surgical History: Reports: Hx Dilation and Curettage, Hx Gynecologic Surgery - DNC, Other - Pilonidal abscess - Immunizations Immunizations up to date: Yes Hx Diphtheria, Pertussis, Tetanus Vaccination: Yes - UNKNOWN Physical Exam - Vital signs Vitals: Temp Pulse Resp BP Pulse Ox 97.9 F 86 16 118/83 100 02/11/20 12:08 02/11/20 12:08 02/11/20 12:08 02/11/20 12:08 02/11/20 12:08 Course - Vital Signs Vital signs: Temp Pulse Resp BP Pulse Ox 97.9 F 86 16 118/83 100 02/11/20 12:08 02/11/20 12:08 02/11/20 12:08 02/11/20 12:08 02/11/20 12:08 Doctor's Discharge - Discharge Referrals: ROSALVA RIVERS NP [Primary Care Provider] - Follow up as needed
[2020-02-11 13:03] LABS: ABSOLUTE EOSINOPHILS # (AUTO) 0.2 10^3/uL (0.0-0.6); ABSOLUTE LYMPHOCYTES (AUTO) 2.1 10^3/uL (0.5-4.7); ABSOLUTE MONOCYTES (AUTO) 0.3 10^3/uL (0.1-1.4); ABSOLUTE NEUT (AUTO) 2.7 10^3/uL (1.7-8.2); APPEARANCE,URINE CLEAR; BASOPHILS % (AUTO) 0.4 % (0-2); BILIRUBIN,URINE NEGATIVE (NEGATIVE); COLOR,URINE YELLOW; EOSINOPHILS % (AUTO) 2.9 % (0-6); GLUCOSE, URINE NEGATIVE (NEGATIVE); HEMOGLOBIN 14.4 g/dL (12.0-15.5); KETONES,URINE NEGATIVE (NEGATIVE); LEUKOCYTE ESTERASE,URINE NEGATIVE (NEGATIVE); LYMPHOCYTES % (AUTO) 39.4 % (13-45); MEAN CORPUSCULAR HEMOGLOBIN 31.1 pg (27.0-33.4); MEAN CORPUSCULAR HGB CONC 34.3 g/dL (32.0-36.0); MEAN CORPUSCULAR VOLUME 91 fl (80-97); MONOCYTES % (AUTO) 6.3 % (3-13); NITRITE,URINE NEGATIVE (NEGATIVE); PLATELET COUNT 174 10^3/uL (150-450); PROTEIN,URINE NEGATIVE (NEGATIVE); RED BLOOD COUNT 4.63 10^6/uL (3.72-5.28); TOTAL CELLS COUNTED % (AUTO) 100 %; URINE SPECIFIC GRAVITY 1.016; UROBILINOGEN,URINE NEGATIVE mg/dL (<2.0); WHITE BLOOD COUNT 5.3 10^3/uL (4.0-10.5)
[2020-02-11 13:19] LABS: ALBUMIN 4.5 g/dL (3.5-5.0); ALKALINE PHOSPHATASE 41 U/L (38-126); ANION GAP 8 (5-19); ASPARTATE AMINO TRANSFERASE 27 U/L (14-36); BILIRUBIN,DIRECT 0.1 mg/dL (0.0-0.4); BILIRUBIN,TOTAL 0.5 mg/dL (0.2-1.3); BLOOD UREA NITROGEN 14 mg/dL (7-20); CALCIUM 9.3 mg/dL (8.4-10.2); CARBON DIOXIDE 24 mmol/L (22-30); CHLORIDE 108 mmol/L (98-107); GLUCOSE 87 mg/dL (75-110); POTASSIUM 4.2 mmol/L (3.6-5.0); TOTAL PROTEIN 7.4 g/dL (6.3-8.2)
--- NOTE | 2020-02-11 15:21 | RADIOLOGY REPORT (SQ) ---
EXAM DESCRIPTION: U/S NON-OB PELVIS TV W/O DOP IMAGES COMPLETED DATE/TIME: 02/11/2020 2:56 pm REASON FOR STUDY: llq pelvic pain COMPARISON: 06/17/2016 TECHNIQUE: Dynamic and static grayscale images acquired of the pelvis via transvaginal approach and recorded on PACS. Additional selected color Doppler and spectral images recorded. LIMITATIONS: None. FINDINGS: UTERUS: Contour normal. No mass. ENDOMETRIAL STRIPE: IUD. No focal or generalized thickening. No masses. CERVIX: No nabothian cysts. RIGHT OVARY AND DOPPLER: Normal size. No worrisome masses. Normal arterial vascular flow without evid ence for torsion. LEFT OVARY AND DOPPLER: Normal size. No worrisome masses. Normal arterial vascular flow without evide nce for torsion. FREE FLUID: None noted. OTHER: No other significant finding. MEASUREMENTS: UTERUS: 8.4 x 4.1 x 5.3 cm ENDOMETRIAL STRIPE: 5 mm RIGHT OVARY: 3.0 x 2.0 x 3.1 cm LEFT OVARY: 3.1 x 2.3 x 2.5 cm IMPRESSION: IUD demonstrating appropriate positioning. Normal sonographic appearance of the uterus and adnexa. TECHNICAL DOCUMENTATION: JOB ID: [id number] 2010 [employer]- All Rights Reserved Rev Reading location - IP/workstation name: [email or web address]
--- NOTE | 2020-02-11 16:54 | ER Document Report ---
ED General - General Chief Complaint: Lower Abdominal Pain Stated Complaint: ABDOMINAL PAIN Time Seen by Provider: 02/11/20 12:28 Primary Care Provider: ORSALVA RIVERS NP [Primary Care Provider] - Follow up as needed Mode of Arrival: Ambulatory TRAVEL OUTSIDE OF THE [place] IN LAST 30 DAYS: No - HPI Notes: Patient is a 29-year-old female who presents to the emergency department for evaluation of pelvic pain. She states it has been ongoing for the last 6 months, but over the last 2 months it has become daily. Is constant. Is a cramping pain. She states she does get some help from ogvb-uzx-qgwklta medications. Nothing seems to make it worse. She denies any vaginal discharge. She has no history of STDs. No sores in the area. She is in a monogamous relationship. She has had an IUD for about a year. She also has a family history of ovarian cyst, was concerned that might be the issue. - Related Data Allergies/Adverse Reactions: No Known Allergies Allergy (Verified 02/11/20 12:26) Past Medical History - General Information source: Patient - Social History Smoking Status: Never Smoker Chew tobacco use (# tins/day): No Frequency of alcohol use: None Drug Abuse: None Family History: Other - Ovarian cysts per patient Patient has homicidal ideation: No - Past Medical History Cardiac Medical History: Denies: Hx Coronary Artery Disease, Hx Heart Attack, Hx Hypertension Pulmonary Medical History: Reports: Hx Bronchitis - As a child, Hx Pneumonia Denies: Hx Asthma, Hx COPD Neurological Medical History: Denies: Hx Cerebrovascular Accident, Hx Seizures Renal/ Medical History: Denies: Hx Peritoneal Dialysis Musculoskeletal Medical History: Denies Hx Arthritis Past Surgical History: Reports: Hx Dilation and Curettage, Other - Pilonidal abscess - Immunizations Immunizations up to date: Yes Hx Diphtheria, Pertussis, Tetanus Vaccination: Yes - UNKNOWN Review of Systems - Review of Systems Constitutional: No symptoms reported EENT: No symptoms reported Cardiovascular: No symptoms reported Respiratory: No symptoms reported Gastrointestinal: No symptoms reported Genitourinary: No symptoms reported Female Genitourinary: See HPI Musculoskeletal: No symptoms reported Skin: No symptoms reported Neurological/Psychological: No symptoms reported Physical Exam - Vital signs Vitals: Temp Pulse Resp BP Pulse Ox 97.9 F 86 16 118/83 100 02/11/20 12:08 02/11/20 12:08 02/11/20 12:08 02/11/20 12:08 02/11/20 12:08 - Notes Notes: Vital signs reviewed, please refer to chart. Head is normocephalic, atraumatic. Pupils equal round, reactive to light. Neck is supple without meningismus. Heart is regular rate and rhythm. Lungs are clear to auscultation bilaterally. Abdomen is soft, nontender, normoactive bowel sounds throughout. Extremities without cyanosis, clubbing. Posterior calves are nontender. Peripheral pulses are equal. Skin is warm and dry. 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 Course - Re-evaluation Re-evalutation: 02/11/20 16:57 Patient presents to the emergency department for evaluation. She has had pelvic pain for the last 6 months, has become more frequent. Her laboratory investigations and imaging were ordered as through triage. They are entirely unremarkable. I explained to the patient that certainly could be secondary to her IUD, other etiologies may be responsible. She opted to defer pelvic exam at this time for her PROGRAM COORDINATOR. She is told to continue to take lyso-tku-aiubgoo medications as needed, return to the ED with worsening. - Vital Signs Vital signs: Temp Pulse Resp BP Pulse Ox 97.9 F 86 16 118/83 100 02/11/20 12:08 02/11/20 12:08 02/11/20 12:08 02/11/20 12:08 02/11/20 12:08 - Laboratory Result Diagrams: 02/11/20 12:40 02/11/20 12:40 Laboratory results interpreted by me: 02/11/20 12:40 Chloride 108 H - Diagnostic Test Radiology reviewed: Reports reviewed Radiology results interpreted by me: 02/11/20 16:58 Transvaginal US 02/11/20 12:31 IMPRESSION: IUD demonstrating appropriate positioning. Normal sonographic appearance of the uterus and adnexa. Discharge - Discharge Clinical Impression: Pelvic pain Condition: Stable Disposition: HOME, SELF-CARE Instructions: Pelvic Pain ([facility]) Additional Instructions: Continue iecp-flz-[id number] medications as needed for pain. Follow-up with PROGRAM COORDINATOR in 1 to 2 weeks. If you develop increased pain, fevers, or any other new or concerning symptoms, please return immediately to the emergency department for evaluation. Referrals: ROSALVA RIVERS, YFN [Primary Care Provider] - Follow up as needed
[2020-02-11 17:03] VITALS: BP 120/80
== END 2020-02-11 17:02 | disposition home or self-care (01) ==
LOC: ER 12:04
DX: R10.2 Pelvic and perineal pain (principal); Z97.5 Presence of (intrauterine) contraceptive device; Z84.2 Family history of other diseases of the genitourinary system
CPT/HCPCS: 99284; 36415; 84703; 85025; 80053; 81001; 76830; J3490